=== PATIENT | male | born 1985 | race Caucasian/White ===

== ENCOUNTER 2023-06-26 17:38 | Inpatient (IN) | payer SELFPAY ==
[2023-06-26 17:50] VITALS: BP 111/75; PULSE 89; RESP 15; TEMP 36.7; O2SAT 94
[2023-06-26 18:06] VITALS: BMI 28.6
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
[2023-06-26 20:11] VITALS: BP 118/62; PULSE 75; RESP 18; TEMP 36.8; O2SAT 97
[2023-06-26] MEDS: nicotine 4 mg lozenge MUCOUS MEM (20:11)
[2023-06-27 06:00] VITALS: BP 119/87; PULSE 70; RESP 18; O2SAT 98
[2023-06-27] MEDS: thiamine 100 mg Tablet PO (07:32)
[2023-06-27] MEDS: folic acid 1 mg Tablet PO (07:33)
[2023-06-27] MEDS: hyDROXYzine 25 mg Capsule 50 MG PO ×2 (07:33→20:10)
[2023-06-27] MEDS: multivitamin therapeutic Tablet 1 TAB PO (07:33)
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
--- NOTE | 2023-06-27 13:40 | PC.NURSE ---
pt up at nurses station requesting to leave. pt states this is not the kind of facility he was led to believe by his father. he states his father told him to say he was suicidal so that he could get help and medication. pt stated earlier today that he did not want to take medication that would make him sleepy. explained to patient that most medication would make him sleepy until his body got use to the medication. pt states at this time he will not take meds while he is here.
[2023-06-27 13:59] VITALS: RESP 16
[2023-06-27] MEDS: nicotine 2 mg Gum BUCCAL (15:50)
[2023-06-27] MEDS: risperiDONE 1 mg Tablet 0.5 MG PO ×2 (16:27→20:10)
[2023-06-27] MEDS: OLANZapine 5 mg ODT PO (17:56)
[2023-06-27] MEDS: trazodone 50 mg Tablet PO (20:10)
[2023-06-27 20:12] VITALS: BP 101/61; PULSE 72; RESP 18; TEMP 36.7; O2SAT 97
[2023-06-28 06:00] VITALS: BP 89/48; PULSE 68; RESP 15; TEMP 36.9; O2SAT 96
[2023-06-28] MEDS: thiamine 100 mg Tablet PO (09:04)
[2023-06-28] MEDS: folic acid 1 mg Tablet PO (09:04)
[2023-06-28] MEDS: multivitamin therapeutic Tablet 1 TAB PO (09:04)
[2023-06-28] MEDS: risperiDONE 1 mg Tablet 0.5 MG PO ×2 (09:04→17:24)
[2023-06-28] MEDS: nicotine 21 mg Patch 1 PATCH TRANSDERMA (09:07)
[2023-06-28 14:00] VITALS: BP 114/75; PULSE 106; RESP 18; TEMP 36.8; O2SAT 94
[2023-06-28] MEDS: nicotine 2 mg Gum BUCCAL ×2 (18:06→20:29)
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
[2023-06-28 20:35] VITALS: BP 101/66; PULSE 76; RESP 15; TEMP 36.7; O2SAT 96
[2023-06-28] MEDS: trazodone 50 mg Tablet PO (21:02)
[2023-06-28] MEDS: hyDROXYzine 25 mg Capsule 50 MG PO (21:02)
[2023-06-28] MEDS: OLANZapine 5 mg ODT PO (21:02)
[2023-06-29 06:00] VITALS: RESP 18
--- NOTE | 2023-06-29 06:37 | PC.NURSE ---
pt resting vs not collecetd per charge nurse resp 18
[2023-06-29] MEDS: folic acid 1 mg Tablet PO (08:01)
[2023-06-29] MEDS: thiamine 100 mg Tablet PO (08:01)
[2023-06-29] MEDS: risperiDONE 1 mg Tablet 0.5 MG PO ×2 (08:01→17:24)
[2023-06-29] MEDS: multivitamin therapeutic Tablet 1 TAB PO (08:01)
[2023-06-29] MEDS: nicotine 4 mg lozenge MUCOUS MEM ×2 (08:01→20:22)
[2023-06-29] MEDS: nicotine 2 mg Gum BUCCAL (11:05)
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
[2023-06-29 14:00] VITALS: RESP 16
--- NOTE | 2023-06-29 16:13 | PC.NURSE ---
pt friend Roberta Rojas called stating she had made him an appointment with Dr. Bernal at [facility] on jul @ 0900. and that patient would be coming to her home upon discharges.
[2023-06-29 20:09] VITALS: BP 105/66; PULSE 69; RESP 18; TEMP 37; O2SAT 98
[2023-06-29] MEDS: OLANZapine 5 mg ODT PO (20:18)
[2023-06-29] MEDS: hyDROXYzine 25 mg Capsule 50 MG PO (20:18)
[2023-06-29] MEDS: trazodone 50 mg Tablet PO (20:18)
[2023-06-30 06:00] VITALS: BP 127/85; PULSE 86; RESP 18; TEMP 37.1; O2SAT 98
[2023-06-30] MEDS: risperiDONE 1 mg Tablet 0.5 MG PO (08:22)
[2023-06-30] MEDS: thiamine 100 mg Tablet PO (08:22)
[2023-06-30] MEDS: nicotine 4 mg lozenge MUCOUS MEM (08:22)
[2023-06-30] MEDS: multivitamin therapeutic Tablet 1 TAB PO (08:23)
[2023-06-30] MEDS: folic acid 1 mg Tablet PO (08:23)
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
== END 2023-06-30 10:15 | disposition home or self-care (01) | DRG 886 ==
PROVIDERS: Admitting Provider Psychiatry & Neurology Psychiatry; Visit Provider Psychiatry & Neurology Psychiatry
DX: F63.9 Impulse disorder, unspecified (principal); R45.851 Suicidal ideations; F90.9 Attention-deficit hyperactivity disorder, unspecified type; F10.20 Alcohol dependence, uncomplicated; Z87.820 Personal history of traumatic brain injury; F39 Unspecified mood [affective] disorder
CPT/HCPCS: 97150; 97165; 99238